=== PATIENT | female | born 2000 | race Caucasian/White ===

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

== ENCOUNTER 2018-02-23 22:15 | Emergency (ER) | payer OTHER ==
[~2018-02-23] VITALS: Ht 167.6 cm; Wt 108.9 kg
== END 2018-02-23 22:54 | disposition home or self-care (01) ==
LOC: ED 22:15
DX: S61.012A Laceration without foreign body of left thumb without damage to nail, initial encounter (principal); Z88.0 Allergy status to penicillin; Z88.7 Allergy status to serum and vaccine; Z88.6 Allergy status to analgesic agent; Z88.1 Allergy status to other antibiotic agents; W26.0XXA Contact with knife, initial encounter
CPT/HCPCS: 99282

== ENCOUNTER 2018-09-20 00:12 | Emergency (ER) | payer OTHER ==
[~2018-09-20] VITALS: Ht 167.6 cm; Wt 99.8 kg
[2018-09-20] MEDS ORDERED: SERTRALINE HCL100 MG PO (00:27)
[2018-09-20] MEDS ORDERED: MACROBID 100 M100 MG PO (02:02)
[2018-09-20] MEDS ORDERED: PYRIDIUM200 MG PO (02:02)
== END 2018-09-20 02:15 | disposition home or self-care (01) ==
LOC: ED 00:12
DX: N39.0 Urinary tract infection, site not specified (principal); Z88.0 Allergy status to penicillin; Z88.7 Allergy status to serum and vaccine; Z88.6 Allergy status to analgesic agent; Z88.1 Allergy status to other antibiotic agents
CPT/HCPCS: 81001; 84703; 87088; 99283

== ENCOUNTER 2019-04-29 14:30 | Emergency (ER) | payer OTHER ==
[~2019-04-29] VITALS: Ht 172.7 cm; Wt 111.1 kg
[~2019-04-29 14:30] MED LIST changes: +ATOMOXETINE HCL40 MG PO; +HYDROXYZINE HCL25 MG PO; +MACROBID 100 M100 MG PO; +PYRIDIUM200 MG PO; +SERTRALINE HCL100 MG PO; +ZOFRAN8 MG PO
== END 2019-04-29 19:57 | disposition home or self-care (01) ==
LOC: ED 14:30
DX: R10.2 Pelvic and perineal pain (principal); Z88.0 Allergy status to penicillin; Z88.1 Allergy status to other antibiotic agents; Z88.6 Allergy status to analgesic agent; Z88.7 Allergy status to serum and vaccine; Z79.899 Other long term (current) drug therapy
CPT/HCPCS: 74177; 76830; 76856; 81001; 84703; 85025; 87088; 99284-25; J1885; Q9967

== ENCOUNTER 2019-06-02 15:03 | Emergency (ER) | payer OTHER ==
--- OUTSIDE RECORDS SUMMARY | ~2019-06-02 | XMS | Encounter Summary ---
Demographics + + + | Address | [address] | | | [place] [address] | + + + | Home Phone | | + + + | Preferred Language | Unknown | + + + | Marital Status | Single | + + + | Latter-Day Affiliation | Unknown | + + + | Race | White | + + + | Ethnic Group | Not or | + + + Author + + + | Author | [facility] | + + + | Organization | [facility] | + + + | Address | Unknown | + + + | Phone | Unavailable | + + + Support + + + + + | Name | Relationship | Address | Phone | + + + + + | Debi Fisher | ECON | [address] | | | | | [place] | | | | | [address] | | + + + + + Care Team Providers + +------+ + | Care Heavy Duty Diesel Mechanic Name | Role | Phone | + +------+ + | Jonel Mcintosh DO | PCP | | + +------+ + Encounter Details +--------+ + + + + | Date | Type | Department | Care Team | Description | +--------+ + + + + | 07/28/ | Document-Sc | Dermatology at | [facility], | | | 2015 | anned | Jennifer Carlson | ,PhD | | | | | Clinic [address] | | | | | | [place] | | | | | | [address] | | | | | | [phone] | | | +--------+ + + + + Social History + +-------+ +--------+------+ | Tobacco Use | Types | Packs/Day | Years | Date | | | | | Used | | + +-------+ +--------+------+ | Never Smoker | | | | | + +-------+ +--------+------+ + + +---------+ + | Alcohol Use | Drinks/Week | oz/Week | Comments | + + +---------+ + | Not Asked | 0 Standard drinks | 0.0 | | | | or equivalent | | | + + +---------+ + + + + | Sex Assigned at | Date Recorded | | | | + + + | Not on file | | + + + + + + + | Job Start Date | Occupation | Industry | + + + + | Not on file | Not on file | Not on file | + + + + + + + + | Travel History | Travel Start | Travel End | + + + + + + | No recent travel history available. | + + documented as of this encounter Plan of Treatment Not on filedocumented as of this encounter Visit Diagnoses Not on filedocumented in this encounter"
--- OUTSIDE RECORDS SUMMARY | ~2019-06-02 | XMS | Encounter Summary ---
Demographics + + + | Address | [address] | | | [place] [address] | + + + | Home Phone | | + + + | Preferred Language | Unknown | + + + | Marital Status | Single | + + + | Restorationism Affiliation | Unknown | + + + | Race | White | + + + | Ethnic Group | Not or | + + + Author + + + | Author | [facility] | + + + | Organization | [facility] | + + + | Address | Unknown | + + + | Phone | Unavailable | + + + Support + + + + + | Name | Relationship | Address | Phone | + + + + + | Debi Fisher | ECON | [address] | | | | | [place] | | | | | [address] | | + + + + + Care Team Providers + +------+ + | Care Grant Manager Name | Role | Phone | + +------+ + | Jonel Mcintosh DO | PCP | | + +------+ + Encounter Details +--------+ + + + + | Date | Type | Department | Care Team | Description | +--------+ + + + + | 08/01/ | Telephone | Dermatology at | [facility], | | | 2015 | | Jennifer Carlson | ,PhD | | | | | Clinic [address] | | | | | | [place] | | | | | | [address] | | | | | | [phone] | | | +--------+ + + + [...]
--- OUTSIDE RECORDS SUMMARY | ~2019-06-02 | XMS | Encounter Summary ---
Demographics + + + | Address | [address] | | | [place] [address] | + + + | Home Phone | | + + + | Preferred Language | Unknown | + + + | Marital Status | Single | + + + | Denominational Affiliation | Unknown | + + + | Race | White | + + + | Ethnic Group | Not or | + + + Author + + + | Author | [facility] | + + + | Organization | [facility] | + + + | Address | Unknown | + + + | Phone | Unavailable | + + + Support + + + + + | Name | Relationship | Address | Phone | + + + + + | Deib Fisher | ECON | [address] | | | | | [place] | | | | | [address] | | + + + + + Care Team Providers + +------+ + | Care Relocation Associate Name | Role | Phone | + +------+ + | Jonel Mcintosh DO | PCP | | + +------+ + Encounter Details +--------+ + + + + | Date | Type | Department | Care Team | Description | +--------+ + + + + | 08/27/ | Document-Sc | Dermatology at | [facility], | | | 2015 | anned | Jennifer Carlson | ,PhD | | | | | Clinic [address] | | | | | | [place] | | | | | | [address] | | | | | | [phone] | | | +--------+ + + + [...]
--- OUTSIDE RECORDS SUMMARY | ~2019-06-02 | XMS | Encounter Summary ---
Demographics + + + | Address | [address] | | | [place] [address] | + + + | Home Phone | | + + + | Preferred Language | Unknown | + + + | Marital Status | Single | + + + | Zoroastrian Affiliation | Unknown | + + + | Race | White | + + + | Ethnic Group | Not or | + + + Author + + + | Author | [facility] | + + + | Organization | [facility] | + + + | Address | Unknown | + + + | Phone | Unavailable | + + + Support + + + + + | Name | Relationship | Address | Phone | + + + + + | Debi Fisher | ECON | [address] | | | | | [place] | | | | | [address] | | + + + + + Care Team Providers + +------+ + | Care Dairy Inspector Name | Role | Phone | + +------+ + | Jonel Mcintosh DO | PCP | | + +------+ + Encounter Details +--------+ + + + + | Date | Type | Department | Care Team | Description | +--------+ + + + + | 08/10/ | Document-Sc | Dermatology at | [facility], | | | 2015 | anned | Jennifer Carlson | ,PhD | | | | | Clinic [address] | | | | | | [place] | | | | | | [address] | | | | | | [phone] | | | +--------+ + + + [...]
--- OUTSIDE RECORDS SUMMARY | ~2019-06-02 | XMS | Encounter Summary ---
Demographics + + + | Address | [address] | | | [place] [address] | + + + | Home Phone | | + + + | Preferred Language | Unknown | + + + | Marital Status | Single | + + + | Temple Affiliation | Unknown | + + + | Race | White | + + + | Ethnic Group | Not or | + + + Author + + + | Author | [facility] | + + + | Organization | [facility] | + + + | Address | Unknown | + + + | Phone | Unavailable | + + + Support + + + + + | Name | Relationship | Address | Phone | + + + + + | Debi Fisher | ECON | [address] | | | | | [place] | | | | | [address] | | + + + + + Care Team Providers + +------+ + | Care Certified Alcohol Counselor Name | Role | Phone | + +------+ + | Jonel Mcintosh DO | PCP | | + +------+ + Encounter Details +--------+ + + + + | Date | Type | Department | Care Team | Description | +--------+ + + + + | 11/14/ | Document-Sc | Dermatology at | [facility], | | | 2015 | [place] | Jennifer Carlson | ,PhD | | | | | Clinic [address] | | | | | | [place] | | | | | | [address] | | | | | | [phone] | | | +--------+ + + + + Social History + +-------+ +--------+------+ | Tobacco Use | Types | Packs/Day | Years | Date | | | | | Used | | + +-------+ +--------+------+ | Never Assessed | | | | | + +-------+ +--------+------+ + + + | Sex Assigned at [...]
--- OUTSIDE RECORDS SUMMARY | ~2019-06-02 | XMS | Encounter Summary ---
Demographics + + + | Address | [address] | | | [place] [address] | + + + | Home Phone | | + + + | Preferred Language | Unknown | + + + | Marital Status | Single | + + + | Christian Affiliation | Unknown | + + + | Race | White | + + + | Ethnic Group | Not or | + + + Author + + + | Author | [facility] | + + + | Organization | [facility] | + + + | Address | Unknown | + + + | Phone | Unavailable | + + + Support + + + + + | Name | Relationship | Address | Phone | + + + + + | Debi Fisher | ECON | [address] | | | | | [place] | | | | | [address] | | + + + + + Care Team Providers + +------+ + | Care Chicken Picker Name | Role | Phone | + +------+ + | Jonel Mcintosh DO | PCP | | + +------+ + Reason for Visit + + + | Reason | Comments | + + + | Examination Of Skin | Adriane is here today for concerns with a rash on groin and inner | | | thighs. SWETHA Broussard | + + + Consultation (Routine) +--------+--------+ + + + + | Status | Reason | Specialty | Diagnoses / | Referred By | Referred To | | | | | Procedures | Contact | Contact | +--------+--------+ + + + + | Closed | | Dermatology | Diagnoses | Arnaldo, | Skip, | | | | | | Jonel Hardwick DO | [facility], | | | | | Dermatophyto | [address] | ,Ph[address] | | | | [address], | [address] | [address] | | | | | unspecified | [place], | [place], [place] | | | | | Dermatitis, | [place] [address] | [address] | | | | | unspecified | Phone: | | | | | | | [phone] | | | | | | | Fax: | | | | | | | [phone] | | +--------+--------+ + + + + Encounter Details +--------+---------+ + + + | Date | Type | Department | Care Team | Description | +--------+---------+ + + + | 07/10/ | Office | Dermatology [facility] | [facility], | Vitiligo (Primary | | 2015 | Visit | [address] | ,PhD | Dx); Intertrigo; | | | | [place], [place] | | Acquired acanthosis | | | | [address] | | nigricans | | | | [phone] | | | +--------+---------+ + + + Social History + +-------+ [...] + + documented as of this encounter Last Filed Vital Signs + + + + + | Vital Sign | Reading | Time Taken | Comments | + + + + + | Blood Pressure | - | - | | + + + + + | Pulse | 63 | 07/10/2016 10:59 AM | | | | | PST | | + + + + + | Temperature | - | - | | + + + + + | Respiratory Rate | - | - | | + + + + + | Oxygen Saturation | 99% | 07/10/2016 10:59 AM | | | | | PST | | + + + + + | Inhaled Oxygen | - | - | | | Concentration | | | | + + + + + | Weight | 101.8 kg (224 lb 6.4 | 07/10/2016 10:59 AM | | | | oz) | PST | | + + + + + | Height | 172.7 cm (5' 8") | 07/10/2016 10:59 AM | | | | | PST | | + + + + + | Body Mass Index | 34.12 | 07/10/2016 10:59 AM | | | | | PST | | + + + + + documented in this encounter Patient Instructions Patient Instructions Kya Valdivia MD,PhD - 07/10/2016 11:09 AM [facility] Vitiligo: Care Instructions Your Care Instructions Vitiligo (say "to-rub-OP-go") is a skin problem that happens when cells that make pigment a re destroyed. Pigment gives skin its color. You may have white patches on areas of your body. The hair in these places may turn white. Sometimes, the white patches spread. Doctors don't know what causes this problem. It may run in families. This means that a chil d may be more likely to get it if a parent has it. If you decide to treat this problem, treatment can take a long time to work, and it may not work at all. Follow-up care is a gabriel part of your treatment and safety. Be sure to make and go to all ap pointments, and call your doctor if you are having problems. It's also a good idea to know y our test results and keep a list of the medicines you take. How can you care for yourself at home? Put creams or ointments on your skin as directed by your doctor. Be careful if you put t hem around your eyes, nose, or mouth. Take your medicines exactly as prescribed. Call your doctor if you have any problems wit h your medicine. If you have light therapy, your skin will be exposed to a special light. Follow your doc tor's directions on caring for your skin. Protect your skin from the sun. It is most important to protect the white patches. Use s unscreen, hats with wide brims, sunglasses, and clothing that covers your arms and legs. Talk to your doctor about sunless tanning products. You can buy these without a prescrip tion. When should you call for help? Watch closely for changes in your health, and be sure to contact your doctor if: White patches on your skin spread faster than usual. You do not get better as expected. Where can you learn more? To learn more about "Vitiligo: Care Instructions", log into your [employer] account at [email or web address]. You can enter B241 in the [employer] Library" search box. Not on [employer]? Review the [employer] section of your After Visit Summary for directions on ho w to sign up. [id number] [employer]. Care instructions adapted under license by [facility]. This care instruction is for use with your licensed healthcar e professional. If you have questions about a medical condition or this instruction, always ask your healthcare professional. [employer] disclaims any warranty or liabili ty for your use of this information. Content Version: 11.0.877889; Current as of: October 05, 2015 documented in this encounter Progress Notes Kya Valdivia MD,PhD - 07/10/2016 10:56 AM PSTFormatting of this note might be differen t from the original. DERMATOLOGY NEW PATIENT VISIT CHIEF COMPLAINT: Examination Of Skin PCP: Jonel Mcintosh DO HISTORY OF PRESENT ILLNESS: Garland Fisher is a 16 y.o. female who presents for evaluation of Examination Of Skin She i s a new patient to dermatology. She is here for evaluation of a rash in her inguinal area. T his has been going on for approximately three years. She finds that it is itchy, inflamed an d sometimes tender. It tends to worsen around the time of her menstrual cycle. She has had n umerous treatments including oral griseofulvin, oral antibiotics and topical antifungals. Sh benedict feels like the rash does sometimes improve, but has never cleared. She is most bothered by the lightning/whitening of the skin in the affected area. She does have a history of hypothyroidism as a child, was on thyroid replacement but is now not. Her recent thyroid function tests have been normal. She is also focusing on exercise a nd weight loss, was told that she was potentially prediabetic. She grew up in [place], [place]. They have no history of tanning bed use, no history of serious s unburns. Outdoor hobbies and interests include: swim, soccer, tennis. Occupation: [employer]. Phelps skin type II. She does regularly use sunscreens and protective clothing, and d oes examine her skin regularly. The patient's dermatology intake form was reviewed, signed, and dated. Her relevant PMH, F H, and SH includes: PAST MEDICAL HISTORY: No past medical history on file. PAST SURGICAL HISTORY: No past surgical history on file. FAMILY HISTORY: Family History: no autoimmune disease SOCIAL HISTORY: Patient MEDICATIONS: Current Medication List Not on File ALLERGIES: -- Penicillins -- Nausea and Vomiting REVIEW OF SYSTEMS: Please see HPI and PMH. In addition, she denies fever, chills, sweats, weight loss or loss of appetite, and has no further skin complaints. PHYSICAL EXAMINATION: Pulse 63 | Ht 1.727 m (5' 8") | Wt 101.787 kg (224 lb 6.4 oz) | SpO2 99% | BMI 34.13 kg/(m^ 2) Well-developed, well-nourished female in no acute distress. Awake, alert and oriented. Pl easant and cooperative mood. A skin examination was performed including the groin, axilla, thighs Findings were within normal limits except for the following: --Groin: depigmented patches along the inguinal creases and medial thighs with follicular r e-pigmentation bilaterally, erythema and maceration in the same distribution on the L side o nly --axillary vaults: hyperpigmentation and acanthosis ASSESSMENT AND PLAN: Vitiligo (primary encounter diagnosis) Comment: Groin, with evidence of re-pigmentation - may indicate a good prognosis, appears t o be improving without therapy. The mainstay of treatment is topical steroids, which I am he sitant to use in this occluded area as it increases the risk of skin atrophy. Also, she has concominant intertrigo which can be worsened with steriods. Plan: topical PROTOPIC ointment, and non-steroid anti-inflammatory, would be the ideal ther apy as it does not have risk of skin atrophy and has a lower risk for worsening the intertri go. Insurance coverage will likely be an issue. Will start PA if needed and discussed discou nted medications through [facility] Intertrigo Comment: Groin Plan: Fluconazole 150 mg weekly x 12 weeks Acanthosis nigricans Comment: axillae Plan: we discussed continued efforts at weight loss will help improve/resolve the appearanc e of these areas, discussed association with insulin resistance. RETURN VISIT: Return in about 3 months (around 10/10/2016). Kya Valdivia M.D. Ph.D. Weight Recorder Department of Dermatology [facility] ([facility] Dermatology documented in th is encounter Plan of Treatment Not on filedocumented as of this encounter Visit Diagnoses + + | Diagnosis | + + | Vitiligo - Primary | + + | Intertrigo Other specified erythematous condition | + + | Acquired acanthosis nigricans | + + documented in this encounter
--- OUTSIDE RECORDS SUMMARY | ~2019-06-02 | XMS | Encounter Summary ---
Demographics + + + | Address | [address] | | | [place] [address] | + + + | Home Phone | | + + + | Preferred Language | Unknown | + + + | Marital Status | Single | + + + | Anglican Affiliation | Unknown | + + + | Race | White | + + + | Ethnic Group | Not or | + + + Author + + + | Author | [facility] | + + + | Organization | [facility] | + + + | Address | Unknown | + + + | Phone | Unavailable | + + + Support + + + + + | Name | Relationship | Address | Phone | + + + + + | Debi Fisher | ECON | [address] | | | | | [place] | | | | | [address] | | + + + + + Care Team Providers + +------+ + | Care Revenue Manager Name | Role | Phone | [...] [place] | | | | | | [address] | | | | | | [phone] | | | +--------+ + + + [...]
--- OUTSIDE RECORDS SUMMARY | ~2019-06-02 | XMS | Encounter Summary ---
Demographics + + + | Address | [address] | | | [place] [address] | + + + | Home Phone | | + + + | Preferred Language | Unknown | + + + | Marital Status | Single | + + + | Amish Affiliation | Unknown | + + + | Race | White | + + + | Ethnic Group | Not or | + + + Author + + + | Author | [facility] | + + + | Organization | [facility] | + + + | Address | Unknown | + + + | Phone | Unavailable | + + + Support + + + + + | Name | Relationship | Address | Phone | + + + + + | Debi Fisher | ECON | [address] | | | | | [place] | | | | | [address] | | + + + + + Care Team Providers + +------+ + | Care Professor Of Industrial Technology Name | Role | Phone | + +------+ + | Jonel Mcintosh DO | PCP | | + +------+ + Encounter Details +--------+ + + + + | Date | Type | Department | Care Team | Description | +--------+ + + + + | 08/28/ | Telephone | Dermatology at | [facility], | | | 2015 | | Jennifer Carlson | ,PhD | | | | | Clinic [address] | | | | | | [place] | | | | | | [address] | | | | | | [phone] | | | +--------+ + + + [...]
--- OUTSIDE RECORDS SUMMARY | ~2019-06-02 | XMS | Clinical Summary ---
Demographics + + + | Address | [address] | | | [place] [address] | + + + | Home Phone | | + + + | Preferred Language | Unknown | + + + | Marital Status | Single | + + + | Quaker Affiliation | Unknown | + + + | Race | Unknown | + + + | Ethnic Group | Unknown | + + + Author + + + | Author | [facility] | | | and [place] | + + + | Organization | [facility] | | | and [place] | + + + | Address | Unknown | + + + | Phone | Unavailable | + + + Support + + +---------+ + | Name | Relationship | Address | Phone | + + +---------+ + | Yen Fisher | ECON | Unknown | | + + +---------+ + | Sania Santo | ECON | Unknown | | + + +---------+ + Care Team Providers + +------+ + | Care Mail Processing Associate Name | Role | Phone | + +------+ + | Jonel Mcintosh DO | PCP | Unavailable | + +------+ + Allergies + + + + + + | Active Allergy | Reactions | Severity | Noted | Comments | | | | | Date | | + + + + + + | Adhesive & Tape | Itching | | 07/20/20 | | | | | | 18 | | + + + + + + | Albumen, Egg | Nausea Only | Low | 07/06/20 | | | | | | 18 | | + + + + + + | Ibuprofen | Other (See Comments) | | 06/07/20 | Reaction: Unknown | | | | | 18 | | + + + + + + | Milk | Nausea Only, Other | Low | 07/06/20 | Upset stomach | | | (See Comments) | | 18 | | + + + + + + | Penicillins | | | 07/18/20 | | | | | | 10 | | + + + + + + Medications + + + +---------+------+------+-------+ | Medication | Sig | Dispensed | Refills | Star | End | Statu | | | | | | t | Date | s | | | | | | Date | | | + + + +---------+------+------+-------+ | | Take 1 tablet by | | 0 | | | Activ | | levonorgestrel-ethin | mouth Daily. | | | | | e | | yl estradiol | | | | | | | | (CAMRESE) 0.15-0.03 | | | | | | | | &0.01 MG TABS | | | | | | | + + + +---------+------+------+-------+ | tacrolimus | Apply 1 Application | | 0 | | | Activ | | (PROTOPIC) 0.1 % | topically 2 times | | | | | e | | ointment | daily. | | | | | | + + + +---------+------+------+-------+ | sertraline | take 1/2 tablet by | | 0 | 10/3 | | Activ | | (ZOLOFT) 50 mg | mouth once daily for | | | 0/20 | | e | | tablet | 6 days then 1 | | | 18 | | | | | tablet by m... | | | | | | | | (REFER TO | | | | | | | | PRESCRIPTION NOTES). | | | | | | + + + +---------+------+------+-------+ | eluxadoline | Take 1 tablet by | 24 | 0 | 11/0 | | Activ | | (VIBERZI) 100 mg | mouth 2 times daily | tablet | | 6/20 | | e | | tabletIndications: | (with breakfast & | | | 18 | | | | Nocturnal diarrhea | dinner). | | | | | | + + + +---------+------+------+-------+ Active Problems + + + | Problem | Noted Date | + + + | Chronic abdominal pain | 07/06/2018 | + + + | Irritable bowel syndrome with both constipation and diarrhea | 07/06/2018 | + + + | Nocturnal diarrhea | 07/06/2018 | + + + | Acne | 07/06/2018 | + + + | Obesity, Class III, BMI 40-49.9 (morbid obesity) | 07/06/2018 | + + + | VOMITING | 07/18/2010 | + + + | ABDOMINAL PAIN, GENERALIZED | 07/18/2010 | + + + Immunizations + + + + | Name | Dates Previously Given | Next Due | + + + + | HEP A, 2 DOSE | 03/12/2017 | | | (PED/ADOL) | | | + + + + | HEP B, 2 DOSE (ADOL) | 03/12/2017 | | + + + + | MENINGOCOCCAL | 03/15/2017, 03/12/2017 | | | POLYSACCHARIDE, 2 | | | | DOSE | | | | (PED/ADOL/ADULT) | | | + + + + Family History + + +------+ + | Medical History | Relation | Name | Comments | + + +------+ + | Allergy (severe) | Father | | | + + +------+ + | Irritable bowel | Father | | | | syndrome | | | | + + +------+ + | Arthritis | Maternal | | | | | Grandmoth | | | | | er | | | + + +------+ + | Colon cancer | Maternal | | | | | Grandmoth | | | | | er | | | + + +------+ + | Colon polyps | Maternal | | | | | Grandmoth | | | | | er | | | + + +------+ + | Migraines | Maternal | | | | | Grandmoth | | | | | er | | | + + +------+ + | Other (see comment) | Paternal | | Malignant neoplastic disease | | | Grandfath | | | | | er | | | + + +------+ + | Arthritis | Paternal | | | | | Grandmoth | | | | | er | | | + + +------+ + | Obesity | Paternal | | | | | Grandmoth | | | | | er | | | + + +------+ + | Other (see comment) | Paternal | | Malignant neoplastic disease | | | Grandmoth | | | | | er | | | + + +------+ + | Allergy (severe) | Sister | | | + + +------+ + + +------+--------+ + | Relation | Name | Status | Comments | + +------+--------+ + | Father | | | | + +------+--------+ + | Maternal Grandmother | | | | + +------+--------+ + | Paternal Grandfather | | | | + +------+--------+ + | Paternal Grandmother | | | | + +------+--------+ + | Sister | | | | + +------+--------+ + Social History + +-------+ +--------+------+ | Tobacco Use | Types | Packs/Day | Years | Date | | | | | Used | | + +-------+ +--------+------+ | Never Smoker | | | | | + +-------+ +--------+------+ + +---+---+---+ | Smokeless Tobacco: | | | | | Never Used | | | | + +---+---+---+ + + +---------+ + | Alcohol Use | Drinks/We | oz/Week | Comments | | | ek | | | + + +---------+ + | No | | | | + + +---------+ + [...] recent travel history available. | + + Last Filed Vital Signs + + + + | Vital Sign | Reading | Time Taken | + + + + | Blood Pressure | 123/74 | 07/20/2018 1012 PST | + + + + | Pulse | 64 | 07/20/2018 1012 PST | + + + + | Temperature | 36.7 C (98.1 F) | 07/20/2018 0950 PST | + + + + | Respiratory Rate | 16 | 07/20/20181011 PST | + + + + | Oxygen Saturation | 100% | 07/20/20181011 PST | + + + + | Inhaled Oxygen | - | - | | Concentration | | | + + + + | Weight | 122.4 kg (269 lb | 07/20/2018807 PST | | | 13.5 oz) | | + + + + | Height | 167.6 cm (5' 6") | 07/20/2018807 PST | + + + + | Body Mass Index | 43.55 | 07/20/2018807 PST | + + + + Plan of Treatment + + + + + | Health Maintenance | Due Date | Last Done | Comments | + + + + + | Well Child Check | | | | | | 1 | | | + + + + + | Vaccine: HPV (1 - | | | | | Female 3-dose | 3 | | | | series) | | | | + + + + + | Vaccine: | | | | | Dtap/Tdap/Td (1 - | 7 | | | | Tdap) | | | | + + + + + | Vaccine: Influenza | | | | | (#1) | 9 | | | + + + + + | Cervical Cancer | | | | | Screening (Pap) | 9 | | | + + + + + Results Not on filefrom Last 3 Months Insurance + +--------+ +--------+ +---------+--------+ | Payer | Benefi | Subscriber | Effect | Phone | Address | Type | | | t Plan | ID | jose antonio | | | | | | / | | Dates | | | | | | Group | | | | | | + +--------+ +--------+ +---------+--------+ | [employer] | MODA | [id number] | | [phone] | | Medica | | MEDICAID HMO | HEALTH | | [phone] | 1 | | id | | | MDCD | | esent | | | | | | HMO [place] | | | | | | + +--------+ +--------+ +---------+--------+ + +--------+ +--------+ + + | Guarantor Name | Accoun | Relation to | Date | Phone | Billing Address | | | t Type | Patient | of | | | | | | | | | | + +--------+ +--------+ + + | YEN FISHER | Person | Mother | [birth year] | [address] | | | monica/Anthony | | 1972 | [phone] | radha ANATOLY | | | [place] | | | 5 (Home) | [place] [address] | + +--------+ +--------+ + + Advance Directives Patient has advance care planning documents on file. For more information, please contact:[facility] [place] [address]
--- OUTSIDE RECORDS SUMMARY | ~2019-06-02 | XMS | Encounter Summary ---
Demographics + + + | Address | [address] | | | [place] [address] | + + + | Home Phone | | + + + | Preferred Language | Unknown | + + + | Marital Status | Single | + + + | Jainism Affiliation | Unknown | + + + | Race | White | + + + | Ethnic Group | Not or | + + + Author + + + | Author | [facility] | + + + | Organization | [facility] | + + + | Address | Unknown | + + + | Phone | Unavailable | + + + Support + + + + + | Name | Relationship | Address | Phone | + + + + + | Debi Fisher | ECON | [address] | | | | | [place] | | | | | [address] | | + + + + + Care Team Providers + +------+ + | Care Clergy Member Name | Role | Phone | + [...] [place] | | | | | | [address] | | | | | | [phone] | | | +--------+ + + + [...]
--- OUTSIDE RECORDS SUMMARY | ~2019-06-02 | XMS | Encounter Summary ---
Demographics + + + | Address | [address] | | | [place] [address] | + + + | Home Phone | | + + + | Preferred Language | Unknown | + + + | Marital Status | Single | + + + | Rastafari Affiliation | Unknown | + + + | Race | White | + + + | Ethnic Group | Not or | + + + Author + + + | Author | [facility] | + + + | Organization | [facility] | + + + | Address | Unknown | + + + | Phone | Unavailable | + + + Support + + + + + | Name | Relationship | Address | Phone | + + + + + | Debi Fisher | ECON | [address] | | | | | [place] | | | | | [address] | | + + + + + Care Team Providers + +------+ + | Care Market Specialist Name | Role | Phone | + +------+ + | Jonel Mcintosh DO | PCP | | + +------+ + Encounter Details +--------+ + + + + | Date | Type | Department | Care Team | Description | +--------+ + + + + | 07/14/ | Document-Sc | Dermatology at | Kya Valdivia, | | | 2015 | anned | Jennifer Carlson | ,PhD | | | | | Clinic [address] | | | | | | [place] | | | | | | [address] | | | | | | [phone] | | | +--------+ + + + [...]
--- OUTSIDE RECORDS SUMMARY | ~2019-06-02 | XMS | Encounter Summary ---
Demographics + + + | Address | [address] | | | [place] [address] | + + + | Home Phone [...] [place] | | | | | [address] | | + + + + + Care Team Providers + +------+ + | Care Marine Underwriter Name | Role | Phone | + [...] [place] | | | | | | [address] | | | | | | [phone] | | | +--------+ + + + [...]
--- OUTSIDE RECORDS SUMMARY | ~2019-06-02 | XMS | Encounter Summary ---
Demographics + + + | Address | [address] | | | [place] [address] | + + + | Home Phone | | + + + | Preferred Language | Unknown | + + + | Marital Status | Single | + + + | Buddhism Affiliation | Unknown | + + + | Race | White | + + + | Ethnic Group | Not or | + + + Author + + + | Author | [facility] | + + + | Organization | [facility] | + + + | Address | Unknown | + + + | Phone | Unavailable | + + + Support + + + + + | Name | Relationship | Address | Phone | + + + + + | Debi Fisher | ECON | [address] | | | | | [place] | | | | | [address] | | + + + + + Care Team Providers + +------+ + | Care Line Person Name | Role | Phone | + +------+ + | Jonel Mcintosh DO | PCP | | + +------+ + Reason for Visit + + + | Reason | Comments | + + + | Skin rash | | + + + Consultation (Routine) +--------+--------+ + + + + | Status | Reason | Specialty | Diagnoses / | Referred By | Referred To | | | | | Procedures | Contact | Contact | +--------+--------+ + + + + | Closed | | Dermatology | Diagnoses | Jesus Mcintosh | | | | | Erythema | Jonel Hardwick DO | Iris Hardwick MD | | | | | intertrigo | [address] | [address] | | | | | | [address] | [address] | | | | | | [place], | [place], [place] | | | | | | [place] [address] | [address] | | | | | | Phone: | | | | | | | [phone] | | | | | | | Fax: | | | | | | | [phone] | | +--------+--------+ + + + + Encounter Details +--------+---------+ + + + | Date | Type | Department | Care Team | Description | +--------+---------+ + + + | 10/06/ | Office | Dermatology at | Kya Valdivia, | Vitiligo (Primary | | 2017 | Visit | [facility] | ,PhD | Dx) | | | | Clinic [address] | | | | | | [place] | | | | | | [address] | | | | | | [phone] | | | +--------+---------+ + + + [...] + + + | Blood Pressure | 118/60 | 10/06/2016 12:51 PM | | | | | PST | | + + + + + | Pulse | 63 | 10/06/2016 12:51 PM | | | | | PST | | + + + + + | Temperature | - | - | | + + + + + | Respiratory Rate | - | - | | + + + + + | Oxygen Saturation | - | - | | + + + + + | Inhaled Oxygen | - | - | | | Concentration | | | | + + + + + | Weight | 96.2 kg (212 lb) | 10/06/2016 12:51 PM | | | | | PST | | + + + + + | Height | 168.9 cm (5' 6.5") | 10/06/2016 12:51 PM | | | | | PST | | + + + + + | Body Mass Index | 33.71 | 10/06/2016 12:51 PM | | | | | PST | | + + + + + documented in this encounter Patient Instructions Patient Instructions Leyda Hernandez MA - 10/06/2016 1:00 PM PSTSUNSCREEN APPLICATION AND UV PROTECTION ? Exposure to ultraviolet radiation is the leading cause of premature aging, and skin cance rs including melanoma. ? The [place] Academy [employer] Dermatology (AAD) recommends you wear a wide-brimmed hat, sun gla sses and sun protective clothing. If you must be in the sun, it is recommended to use a Bro ad spectrum sunscreen (blocking both UVA and UVB) with a sun protection factor (SPF) of 30+ (even on cloudy days) and reapply every two hours, or after swimming or heavy perspiration. ? Sunscreens should be applied generously and evenly. One fluid ounce (or the equivalent o f a full shot glass) is the approximate amount of sunscreen required for each person each ti me sunscreen is applied. ? Sunscreens have an expiration date and once that date is reached, they may lose effective ness and should be discarded. ? Sunscreen is also important for blocking reflected UVR (Ultraviolet Radiation). Sand, con crete, snow, water, and other surfaces reflect UVR which has the same effect to your skin as direct sunlight. THE "ABCDE" RULE AND MELANOMA DETECTION Asymmetry - compare one half of the growth to the other half to determine if the halves are equal in size and appearance. Border - If the mole's border is irregular, notched, scalloped, or indistinct, it should be checked by a doctor. Color - Variation of color (e.g., more than one color or shade) within a mole is a suspicio us finding. Diameter - Any mole that has a diameter larger than a pencil's eraser should be checked by a doctor. Evolving - If a mole is changing in size, shape, color, elevation, surface texture or becom es itchy or painful, it should be checked by a doctor. Additional sunscreen and melanoma information is available at the following websites: http://www.[facility].edu/xd/health/services/dermatology/for-patients/health_info.cfm - [facility] Derm atology http://www.aad.org/public/sun/smart.html - AAD Website documented in this encounter Progress Notes Kya Valdivia MD,PhD - 10/06/2016 1:00 PM [facility] DERMAT[facility]Y FOLLOW-UP VISIT (Last Appointment in [facility] was on 08/28/16 with Kya Valdivia MD,PhD.) --Vitiligo, Rx: protopic --Intertrigo: Groin --Acanthosis nigricans: axillae SUBJECTIVE: Garland Fisher is a 16 y.o. female here for follow-up of Vitiligo. Pt states that she recen tly seen her PCP and he prescribed fluconazole and she states that this has helped tremendou sly. She is currently on a course of this and has 3 days left. She states that the color is returning but it's slow. No longer burning. She applying Protopic once in the morning and on ce in the evening. ROS: Other than those stated above, the patient denies any fevers, chills, night sweats, w eight loss, loss of appetite or other skin complaints. PAST MEDICAL HISTORY: No past medical history on file. PHYSICAL EXAMINATION: BP 118/60 | Pulse 63 | Ht 1.689 m (5' 6.5") | Wt 96.2 kg (212 lb) | BMI 33.71 kg/(m^2) Well-developed, well-nourished person in no acute distress. Awake, alert and oriented. Pl easant and cooperative mood. A skin examination was performed including the scalp, face, eyelids, ears, lips, neck, ches t, back, abdomen, groin, bilateral arms, bilateral hands, and nails. Findings were within n ormal limits except for the following: --depigmented patches symmetrically on the inner thighs, significant interval improvement i n pigmentation, proximally the pigment has become confluent, and distally/laterally the pigm entation remains perifollicular with a slight area yet to re-pigment at the distal border ASSESSMENT AND PLAN: Vitiligo (primary encounter diagnosis) Comment: Improvement! Plan: Continue to use Protopic twice a day. Please continue protopic twice a day until the pigmentation has covered the area, then we will decrease to daily for 3-4 weeks, and eventua lly to 2-3 times a week application for maintenance. Comment: Thanks to PCP Dr. Mcintosh for help with managing the occasional bouts of candidal i ntertrigo. RETURN VISIT: Return in about 4 months (around 02/03/2017). Kya Valdivia M.D. Ph.D. Account Manager Education Department of Dermatology [facility] ([facility]) Dermatology documented in th is encounter Plan of Treatment Not on filedocumented as of this encounter Visit Diagnoses + + | Diagnosis | + + | Vitiligo - Primary | + + documented in this encounter
--- OUTSIDE RECORDS SUMMARY | ~2019-06-02 | XMS | Clinical Summary ---
Demographics + + + | Address | [address] | | | [place] [address] | + + + | Home Phone | | + + + | Preferred Language | Unknown | + + + | Marital Status | Single | + + + | Rastafari Affiliation | Unknown | + + + | Race | Unknown | + + + | Ethnic Group | Unknown | + + + Author + + + | Author | [facility] | | | and [place] | + + + | Organization | [facility] | | | and [place] [...] Team Providers + +------+ + | Care Batch Unit Treater Name | Role | Phone | + [...] | [employer] | [employer] | [id number] | | [phone] | | Medica | [...] | | [address] (Home) | [place] [address] | + +--------+ +--------+ + + Advance Directives Patient has advance care planning documents on file. For more information, please contact:[facility] [place] [address]
--- OUTSIDE RECORDS SUMMARY | ~2019-06-02 | XMS | Encounter Summary ---
Demographics + + + | Address | [address] | | | [place] [address] | + + + | Home Phone [...] Author + + + | Author | [facility] | + + + | Organization | [facility] | + + + | Address | Unknown | + + + | Phone | Unavailable | + + + Support + + + + + | Name | Relationship | Address | Phone | + + + + + | Debi Fisher | ECON | [address] | | | | | [place] | | | | | [address] | | + + + + + Care Team Providers + +------+ + | Care Slope Tender Name | Role | Phone | + [...] [place] | | | | | | [address] | | | | | | [phone] | | | +--------+ + + + [...]
--- OUTSIDE RECORDS SUMMARY | ~2019-06-02 | XMS | Encounter Summary ---
Demographics + + + | Address | [address] | | | [place] [address] | + + + | Home Phone [...] + + + | Author | [facility] | + + + | Organization | [facility] | + + + | Address | Unknown | + + + | Phone | Unavailable | + + + Support + + + + + | Name | Relationship | Address | Phone | + + + + + | Debi Fisher | ECON | [address] | | | | | [place] | | | | | [address] | | + + + + + Care Team Providers + +------+ + | Care Building Consultant Name | Role | Phone | + [...] [place] | | | | | | [address] | | | | | | [phone] | | | +--------+ + + + [...]
--- OUTSIDE RECORDS SUMMARY | ~2019-06-02 | XMS | Clinical Summary ---
Demographics + + + | Address | [address] | | | [place] [address] | + + + | Home Phone | | + + + | Preferred Language | Unknown | + + + | Marital Status | Single | + + + | Faith Affiliation | Unknown | + + + | Race | White | + + + | Ethnic Group | Not or | + + + Author + + + | Author | [facility] | + + + | Organization | [facility] | + + + | Address | Unknown | + + + | Phone | Unavailable | + + + Support + + + + + | Name | Relationship | Address | Phone | + + + + + | Debi Fisher | ECON | [address] | | | | | [place] | | | | | [address] | | + + + + + Care Team Providers + +------+ + | Care Selling Specialist Name | Role | Phone | + +------+ + | Jonel Mcintosh DO | PCP | | + +------+ + Source Comments ELVIE is fully live on both [facility] and [facility] InPatient.[facility] Allergies + + + + + + | Active Allergy | Reactions | Severity | Noted | Comments | | | | | Date | | + + + + + + | Penicillins | Nausea and Vomiting, | | 07/10/20 | | | | Dyspnea | | 16 | | + + + + + + Medications + + + +---------+------+------+-------+ | Medication | Sig | Dispensed | Refills | Star | End | Statu | | | | | | t | Date | s | | | | | | Date | | | + + + +---------+------+------+-------+ | fluconazole 150 mg | Take once weekly | 12 | 0 | 11/1 | | Activ | | oral tablet | | tablet | | 0/20 | | e | | | | | | 16 | | | + + + +---------+------+------+-------+ | tacrolimus | Apply to affected | 30 g | 2 | 11/1 | | Activ | | (PROTOPIC) 0.1 % | area two times | | | 0/20 | | e | | topical ointment | daily. Apply minimum | | | 16 | | | | | amount of ointment | | | | | | | | to affected area. | | | | | | | | Rub in gently and | | | | | | | | completely. | | | | | | + + + +---------+------+------+-------+ Active Problems Not on file Social History + +-------+ +--------+------+ | Tobacco [...] | | + + + + + Plan of Treatment + + + + + | Health Maintenance | Due Date | Last Done | Comments | + + + + + | Influenza (Flu) | | | | | vaccination (#1) | 9 | | | + + + + + | Pneumococcal | Aged Out | | No longer eligible | | vaccination | | | based on patient's | | | | | age to complete this | | | | | topic | + + + + + Results Not on filefrom Last 3 Months Insurance + +--------+ +--------+-------+---------+--------+ | Payer | Benefi | Subscriber | Effect | Phone | Address | Type | | | t Plan | ID | jose antonio | | | | | | / | | Dates | | | | | | Group | | | | | | + +--------+ +--------+-------+---------+--------+ | STATUS CONTROLLER MEDICAID | STATUS CONTROLLER | xxxxxxxx | Effect | | | Medica | | | EASTER | | jose antonio | | | id | | | [place] | | for | | | | | | | | all | | | | | | | | dates | | | | + +--------+ +--------+-------+---------+--------+ + +--------+ +--------+ + + | Guarantor Name | Accoun | Relation to | Date | Phone | Billing Address | | | t Type | Patient | of | | | | | | | | | | + +--------+ +--------+ + + | Garland Fisher | Person | Self | [birth year] | [address] | | | al/[place] | | 2000 | [phone] | [place] [address] | | | [place] | | | 4 (Home) | | + +--------+ +--------+ + +
--- OUTSIDE RECORDS SUMMARY | ~2019-06-02 | XMS | Clinical Summary ---
Demographics + + + | Address | [address] | | | [place] [address] | + + + | Home Phone | | + + + | Preferred Language | Unknown | + + + | Marital Status | Single | + + + | Gnosticism Affiliation | Unknown | + + + | Race | White | + + + | Ethnic Group | Not or | + + + Author + + + | Author | [facility] | + + + | Organization | [facility] | + + + | Address | Unknown | + + + | Phone | Unavailable | + + + Support + + + + + | Name | Relationship | Address | Phone | + + + + + | Debi Fisher | ECON | [address] | | | | | [place] | | | | | [address] | | + + + + + Care Team Providers + +------+ + | Care Dictating Machine Typist Name | Role | Phone | + +------+ + | Jonel Mcintosh DO | PCP | | + +------+ + Source Comments ELVIE is fully live on both [facility] and [facility] Allergies + + + + + [...] | | | + +--------+ +--------+-------+---------+--------+ | CHEST PAIN COORDINATOR MEDICAID | CHEST PAIN COORDINATOR | xxxxxxxx | Effect | | | [...] | 2000 | [phone] | [place] [address] | | | [place] | | | 4 (Home) | | + +--------+ +--------+ + +
--- OUTSIDE RECORDS SUMMARY | ~2019-06-02 | XMS | Encounter Summary ---
Demographics + + + | Address | [address] | | | [place] [address] | + + + | Home Phone | | + + + | Preferred Language | Unknown | + + + | Marital Status | Single | + + + | Latter Day Affiliation | Unknown | + + + | Race | White | + + + | Ethnic Group | Not or | + + + Author + + + | Author | [facility] | + + + | Organization | [facility] | + + + | Address | Unknown | + + + | Phone | Unavailable | + + + Support + + + + + | Name | Relationship | Address | Phone | + + + + + | Debi Fisher | ECON | [address] | | | | | [place] | | | | | [address] | | + + + + + Care Team Providers + +------+ + | Care Apprentice Lineman Third Step Name | Role | Phone | + [...] [place] | | | | | | [address] | | | | | | [phone] | | | +--------+ + + + [...]
--- OUTSIDE RECORDS SUMMARY | ~2019-06-02 | XMS | Encounter Summary ---
Demographics + + + | Address | [address] | | | [place] [address] | + + + | Home Phone | | + + + | Preferred Language | Unknown | + + + | Marital Status | Single | + + + | Sabianist Affiliation | Unknown | + + + [...] [place] | | | | | [address] | | + + + + + Care Team Providers + +------+ + | Care Technical Support Assistant Name | Role | Phone | + [...] [place] | | | | | | [address] | | | | | | [phone] | | | +--------+ + + + [...]
--- OUTSIDE RECORDS SUMMARY | ~2019-06-02 | XMS | Encounter Summary ---
Demographics + + + | Address | [address] | | | [place] [address] | + + + | Home Phone | | + + + | Preferred Language | Unknown | + + + | Marital Status | Single | + + + | Spiritism Affiliation | Unknown | + + + | Race | White | + + + | Ethnic Group | Not or | + + + Author + + + | Author | [facility] | + + + | Organization | [facility] | + + + | Address | Unknown | + + + | Phone | Unavailable | + + + Support + + + + + | Name | Relationship | Address | Phone | + + + + + | Debi Fisher | ECON | [address] | | | | | [place] | | | | | [address] | | + + + + + Care Team Providers + +------+ + | Care Airplane Navigator Name | Role | Phone | + [...] | | | | | [place], | [place], [place] | | | | | | [place] [address] | [address] | | | | | | Phone: | | | | | | | [phone] | | | | | | | Fax: | | | | | | | [phone] | | +--------+--------+ + + + + Encounter Details +--------+---------+ + + + | Date | Type | Department | Care Team | Description | +--------+---------+ + + + | 10/06/ | Office | Dermatology at | Kya Valdivia, | Vitiligo (Primary | | 2017 | Visit | [facility] | ,PhD | Dx) | | | | Clinic [address] | | | | | | [place] | | | | | | [address] | | | | | | [phone] | | | +--------+---------+ + + + [...] skin cance rs including melanoma. ? The [employer] Academy [employer]ermat[employer] (AAD) recommends you wear [...] information is available at the following websites: http://[email or web address]/health/[email or web address]/[email or web address]-[email or web address]_[email or web address] - [facility] Derm atology http://www.aad.org/public/sun/smart.html - AAD Website documented in this encounter Progress Notes Kya Valdivia MD,PhD - 10/06/2016 1:00 PM [facility] DERMATOLOGY FOLLOW-UP VISIT (Last Appointment in [facility] DERMATOLOGY CC was on 08/28/16 with Kya [...] months (around 02/03/2017). Kya Valdivia M.D. Ph.D. Quality Assurance Advisor Department of Dermatology [facility] ([facility]) Dermatology documented in th is encounter Plan of Treatment Not on filedocumented as of this encounter Visit Diagnoses + + | Diagnosis | + + | Vitiligo - Primary | + + documented in this encounter
--- OUTSIDE RECORDS SUMMARY | ~2019-06-02 | XMS | Encounter Summary ---
Demographics + + + | Address | [address] | | | [place] [address] | + + + | Home Phone | | + + + | Preferred Language | Unknown | + + + | Marital Status | Single | + + + | Nondenominational Affiliation | Unknown | + + + | Race | White | + + + | Ethnic Group | Not or | + + + Author + + + | Author | [facility] | + + + | Organization | [facility] | + + + | Address | Unknown | + + + | Phone | Unavailable | + + + Support + + + + + | Name | Relationship | Address | Phone | + + + + + | Debi Fisher | ECON | [address] | | | | | [place] | | | | | [address] | | + + + + + Care Team Providers + +------+ + | Care Director Of Cardiology Name | Role | Phone | + [...] Dermatophyto | [address] | ,[address] | | | | | sis, | [address] | [address] | | | | | unspecified | [place], | [place], [place] | | | | | Dermatitis, | [place] [address] | [address] | | | | | unspecified | Phone: | | | | | | | [phone] | | | | | | | Fax: | | | | | | | [phone] | | +--------+--------+ + + + + [...] | Acquired acanthosis | | | | [address] | | nigricans | | | | [phone] | | | +--------+---------+ + + + [...] Kya Valdivia MD,PhD - 07/10/2016 11:09 AM [facility] Vitiligo: Care Instructions Your Care Instructions Vitiligo (say "rb-glb-VB-go") is a skin problem that happens when [...] about "Vitiligo: Care Instructions", log into your weave energy account at [email or web address]. You can enter B241 in the [employer] Library" search box. Not on weave energy? Review the Milestone Systemshart section of your After Visit Summary for directions on ho w to sign up. [id number] [employer]. Care instructions adapted under license by [facility]. This care instruction is for use with your licensed healthcar e professional. If you have questions about a medical condition or this instruction, always ask your healthcare professional. [employer] disclaims any warranty or liabili ty for your use of this information. Content Version: 11.0.328621; Current as of: October 05, 2015 documented [...] was potentially prediabetic. She grew up in [place], [place]. They have no history of tanning bed use, no history of serious s unburns. Outdoor hobbies and interests include: swim, soccer, tennis. Occupation: [employer]. [employer] skin type II. She does regularly [...] needed and discussed discou nted medications through [employer] Intertrigo Comment: Groin Plan: Fluconazole 150 mg weekly x 12 weeks Acanthosis nigricans Comment: axillae Plan: we discussed continued efforts at weight loss will help improve/resolve the appearanc e of these areas, discussed association with insulin resistance. RETURN VISIT: Return in about 3 months (around 10/10/2016). Kya Valdivia M.D. Ph.D. R D Internship Department of Dermatology [facility] ([facility] Dermatology documented in th is encounter Plan of Treatment Not on filedocumented as of this encounter Visit Diagnoses + + | Diagnosis | + + | Vitiligo - Primary | + + | Intertrigo Other specified erythematous condition | + + | Acquired acanthosis nigricans | + + documented in this encounter
[2019-06-02] MEDS ORDERED: HYDROXYZINE HCL50 MG PO (17:50)
== END 2019-06-02 18:15 | disposition home or self-care (01) ==
LOC: ED 15:03
DX: F41.9 Anxiety disorder, unspecified (principal); Z88.0 Allergy status to penicillin; Z88.1 Allergy status to other antibiotic agents; Z88.7 Allergy status to serum and vaccine; Z79.899 Other long term (current) drug therapy
CPT/HCPCS: 96372; 99283; J0696

== ENCOUNTER 2021-03-04 12:25 | Emergency (ER) | payer OTHER ==
[~2021-03-04] VITALS: Ht 167.6 cm; Wt 132.9 kg
[~2021-03-04 12:25] MED LIST changes: +HYDROXYZINE HCL50 MG PO
--- OUTSIDE RECORDS SUMMARY | 2021-03-04 12:28 | XMS ---
PreManage Notification: MEERA BROWER Security Waistband Setter Events No recent Security Events currently on file CRITERIA MET - PDMP CARE PROVIDERS ASPEN DAVALOS [facility]: Hospice and Palliative Medicine Current PHONE: Unknown ROGELIO GALVEZ [facility] Medicine: Sports Medicine 07/10/2016-Current PHONE: Unknown Leander has no Care Guidelines for this patient. John VISIT COUNT (12 MO.) Shilpa Vigil TOTAL 1 NOTE: Visits indicate total known visits. ED/UCC VISIT TRACKING (12 MO.) 03/04/2021 12:26 [facility] [place] TYPE: Emergency COMPLAINT: - VAGINAL BLEEDING, AND PAIN INPATIENT VISIT TRACKING (12 MO.) No inpatient visits to display in this time frame [id number]
[2021-03-04] MEDS ORDERED: PROPRANOLOL HCL60 MG PO (13:41)
[2021-03-04] MEDS ORDERED: SPRINTEC1 EACH PO (17:02)
== END 2021-03-04 17:16 | disposition home or self-care (01) ==
LOC: ED 12:25
DX: N93.8 Other specified abnormal uterine and vaginal bleeding (principal); Z88.0 Allergy status to penicillin; Z88.1 Allergy status to other antibiotic agents; Z88.7 Allergy status to serum and vaccine; Z79.899 Other long term (current) drug therapy
CPT/HCPCS: 76830; 76856; 80053; 81001; 83690; 84703; 85025; 99284-25

== ENCOUNTER 2023-04-15 00:19 | Emergency (ER) | payer OTHER ==
[~2023-04-15] VITALS: Ht 167.6 cm; Wt 131.1 kg
--- OUTSIDE RECORDS SUMMARY | ~2023-04-15 | XMS | Continuity of Care Document ---
Demographics + + + | Address | [address] | | | [place] [address] | + + + | Preferred Language | Unknown | + + + | Marital Status | Never | + + + | Sikh Affiliation | Unknown | + + + | Race | White | + + + | Ethnic Group | Unknown | + + + Author + + + | Author | [facility] | + + + | Organization | [facility] | + + + | Address | [address] | | | [place] [address] | + + + | Phone | | + + + Care Team Providers + + + + | Care Website Designer Name | Role | Phone | + + + + Unavailable | Unavailable | + + + + Allergies No information. Encounters No information. Functional Status No information. Immunizations No information. Medications No information. Problems + + + + | date | description | facility | + + + + | 2022-07-04 09:05 | PAIN IN RIGHT KNEE | [facility] | + + + + | 2022-07-04 09:05 | PAIN IN LEFT KNEE | [facility] | + + + + | 2022-09-17 08:00 | LOW BACK PAIN, UNSPECIFIED | [facility] | | | | | + + + + | 2022-10-03 07:27 | LOW BACK PAIN, UNSPECIFIED | [facility] | | | | | + + + + | 2023-01-15 12:45 | MASTODYNIA | [facility] | + + + + | 2023-03-19 10:00 | SACROCOCCYGEAL DISORDERS, | [facility] | | | NOT ELSEWHERE CLASSIFIED | | + + + + | 2023-03-19 10:00 | SACROCOCCYGEAL DISORDERS, | [facility] | | | NOT ELSEWHERE | | + + + + | 2023-03-27 12:48 | SACROCOCCYGEAL DISORDERS, | [facility] | | | NOT ELSEWHERE CLASSIFIED | | + + + + | 2023-03-27 12:48 | PALPITATIONS | [facility] | + + + + Procedures No information. Results/Labs No information. Social History No information. Vital Signs No information."
--- OUTSIDE RECORDS SUMMARY | ~2023-04-15 | XMS | Continuity of Care Document ---
Demographics + + + | Address | [address] | | | [place] [address] | + + + | Preferred Language | Unknown | + + + | Marital Status | Never | + + + | Judaism Affiliation | Unknown | + + + | Race | White | + + + | Ethnic Group | Unknown | + + + Author + + + | Author | [facility] | + + + | Organization | [facility] | + + + | Address | [address] | | | [place] [address] | + + + | Phone | | + + + Care Team Providers + + + + | Care Sole Polisher Name | Role | Phone | + [...]
[~2023-04-15 00:19] MED LIST changes: +PROPRANOLOL HCL60 MG PO; +SPRINTEC1 EACH PO
[2023-04-15] MEDS ORDERED: DULOXETINE HCL30 MG PO (00:31)
[2023-04-15] MEDS ORDERED: LEVOTHYROXINE25 MCG PO (00:32)
[2023-04-15 00:44] LABS: BASOPHILS 0.5 % (0-2); EOSINOPHILS 1.1 % (0-6); HEMATOCRIT 36.6 % (35.0-50.0); HEMOGLOBIN 12.5 g/dL (12.0-18.0); MCH 29.1 (27-36); MCHC 34.2 g/dl (30-36); MCV 84.9 fl (81-99); MONOCYTES 8.5 % (0-12); NEUTROPHILS 55.9 % (39-80); PLATELET COUNT 339 K/uL (140-440); RBC 4.31 M/ul (4.3-5.7); RDW 14.3 (10.5-15.0)
[2023-04-15 00:59] LABS: ALBUMIN 3.5 g/dL (3.4-5.0); ALBUMIN/GLOBULIN RATIO 0.85 (1.1-2.4); ANION GAP 14.6 (7-21); BILIRUBIN, TOTAL 0.4 ng/dL (0.2-1.0); BUN/CREATININE RATIO 18.82 (6.0-28.6); CALCIUM 9.1 mg/dL (8.5-10.1); CREATININE, SERUM 0.85 mg/dL (0.55-1.02); MAGNESIUM 1.9 mg/dL (1.8-2.4); POTASSIUM 3.6 mmol/L (3.5-5.1); PROTEIN, TOTAL 7.6 g/dL (6.4-8.2)
[2023-04-15 03:35] VITALS: BP 148/91
[2023-04-15 05:04] LABS: BILIRUBIN, URINE NEGATIVE (negative); KETONE, URINE NEGATIVE (Negative)
[2023-04-15 05:05] LABS: BLOOD/HGB, URINE NEGATIVE (Negative); LEUK ESTERASE, URINE NEGATIVE (negative); NITRITE, URINE NEGATIVE (negative); PH, URINE 7.5 (5-7)
== END 2023-04-15 03:35 | disposition home or self-care (01) ==
LOC: ED 00:19
PROVIDERS: Internal Medicine
DX: R10.13 Epigastric pain (principal); G89.29 Other chronic pain; Z88.7 Allergy status to serum and vaccine; Z88.0 Allergy status to penicillin; Z88.1 Allergy status to other antibiotic agents; Z91.018 Allergy to other foods; Z79.899 Other long term (current) drug therapy; Z79.890 Hormone replacement therapy
CPT/HCPCS: 36415; 80053; 81003; 83690; 83735; 84703; 85025; J1885; J2405; J7121

== ENCOUNTER 2023-05-12 22:54 | Emergency (ER) | payer OTHER ==
[~2023-05-12] VITALS: Ht 167.6 cm; Wt 129.3 kg
[~2023-05-12 22:54] MED LIST changes: +DULOXETINE HCL30 MG PO; +LEVOTHYROXINE25 MCG PO
--- OUTSIDE RECORDS SUMMARY | 2023-05-12 22:58 | XMS ---
PreManage Notification: MEERA BROWER Security Epic Analyst Events No recent Security Events currently on file CRITERIA MET - [facility] - 2 Visits in 30 Days CARE PROVIDERS ERIK WANG [facility] 03/06/2021-Current PHONE: [phone] LEONOR LARKIN [facility] 07/10/2016-Current PHONE: Unknown -Deanna- Dentist: Switchboard Operator Helper [facility] PHONE: [phone] MEGHANA BRUNNER Physician Crusher Plant Operator Current PHONE: Unknown Leander has no Care Guidelines for this patient. John VISIT COUNT (12 MO.) 2 ALBIN Vigil TOTAL 2 NOTE: Visits indicate total known visits. ED/UCC VISIT TRACKING (12 MO.) 05/12/2023 22:54 [facility] [place] TYPE: Emergency COMPLAINT: - VOMITING 04/15/2023 00:19 [facility] [place] TYPE: Emergency COMPLAINT: - ABD PAIN DIAGNOSES: - Allergy status to other antibiotic agents - Allergy status to penicillin - Allergy status to serum and vaccine - Allergy to other foods - Epigastric pain - Hormone replacement therapy - Other chronic pain - Other usp (current) drug therapy INPATIENT VISIT TRACKING (12 MO.) No inpatient visits to display in this time frame [id number]
[2023-05-12] MEDS ORDERED: QELBREE200 MG PO (23:05)
[2023-05-12 23:39] LABS: BASOPHILS 0.3 % (0-2); EOSINOPHILS 0.5 % (0-6); HEMATOCRIT 43.7 % (35.0-50.0); HEMOGLOBIN 14.2 g/dL (12.0-18.0); LYMPHOCYTES 16.5 % (24-44); MCH 28.7 (27-36); MCHC 32.6 g/dl (30-36); MCV 88.1 fl (81-99); MONOCYTES 6.2 % (0-12); NEUTROPHILS 76.5 % (39-80); PLATELET COUNT 308 K/uL (140-440); RBC 4.95 M/ul (4.3-5.7); RDW 14.7 (10.5-15.0)
[2023-05-12 23:44] LABS: INFLUENZA B NAA NEGATIVE (NEGATIVE); RESPIRATORY SYNCYTIAL VIR NAA NEGATIVE (NEGATIVE)
[2023-05-12 23:52] LABS: ALBUMIN 3.6 g/dL (3.4-5.0); ALBUMIN/GLOBULIN RATIO 0.95 (1.1-2.4); ANION GAP 15.5 (7-21); BILIRUBIN, TOTAL 0.5 ng/dL (0.2-1.0); BUN/CREATININE RATIO 13.79 (6.0-28.6); CALCIUM 9.2 mg/dL (8.5-10.1); CREATININE, SERUM 0.87 mg/dL (0.55-1.02); POTASSIUM 3.5 mmol/L (3.5-5.1); PROTEIN, TOTAL 7.4 g/dL (6.4-8.2)
[2023-05-13] MEDS ORDERED: LOMOTIL TABLET1 EACH PO (01:39)
[2023-05-13] MEDS ORDERED: ONDANSETRON ODT8 MG PO (01:39)
[2023-05-13 02:08] VITALS: BP 117/68
== END 2023-05-13 02:10 | disposition home or self-care (01) ==
LOC: ED 22:54
PROVIDERS: Family Medicine
DX: K52.9 Noninfective gastroenteritis and colitis, unspecified (principal); Z20.822 Contact with and (suspected) exposure to COVID-19; E03.9 Hypothyroidism, unspecified; G43.909 Migraine, unspecified, not intractable, without status migrainosus; F43.10 Post-traumatic stress disorder, unspecified; Z88.7 Allergy status to serum and vaccine; Z91.018 Allergy to other foods; Z88.0 Allergy status to penicillin; Z88.1 Allergy status to other antibiotic agents; Z79.899 Other long term (current) drug therapy
CPT/HCPCS: 36415; 74177; 80053; 83690; 84703; 85025; 87502; 96361; 96375; 99284-25; A9270; C9803; J0780; J1885; J7030; Q9967; U0002

== ENCOUNTER 2023-05-18 21:34 | Emergency (ER) | payer OTHER ==
[~2023-05-18] VITALS: Ht 167.6 cm; Wt 128.8 kg
[~2023-05-18 21:34] MED LIST changes: +LOMOTIL TABLET1 EACH PO; +ONDANSETRON ODT8 MG PO; +QELBREE200 MG PO
--- OUTSIDE RECORDS SUMMARY | 2023-05-18 21:41 | XMS ---
PreManage Notification: MEERA BROWER Security Estimate Clerk Events No recent Security Events currently on file CRITERIA MET - [facility] - 2 Visits in 30 Days CARE PROVIDERS ERIK WANG [facility] 03/06/2021-Current PHONE: [phone] LEONOR LARKIN [facility] 07/10/2016-Current PHONE: Unknown -Deanna- Dentist: Broodmare Barn Groom [facility] PHONE: [phone] MEGHANA BRUNNER Physician Cartoon Artist Current PHONE: Unknown Leander has no Care Guidelines for this patient. John VISIT COUNT (12 MO.) 3 ALBIN Vigil TOTAL 3 NOTE: Visits indicate total known visits. ED/UCC VISIT TRACKING (12 MO.) 05/18/2023 21:35 [facility] [place] TYPE: Emergency COMPLAINT: - DENTAL PAIN 05/12/2023 22:54 [facility] [place] TYPE: Emergency COMPLAINT: - VOMITING DIAGNOSES: - Allergy status to other antibiotic agents - Allergy status to penicillin - Allergy status to serum and vaccine - Allergy to other foods - Contact with and (suspected) exposure to COVID-19 - Hypothyroidism, unspecified - Migraine, unspecified, not intractable, without status migrainosus - Noninfective gastroenteritis and colitis, unspecified - Other custodial (current) drug therapy - Post-traumatic stress disorder, unspecified - Unspecified abdominal pain 04/15/2023 00:19 [facility] [place] TYPE: Emergency COMPLAINT: - ABD PAIN DIAGNOSES: - Allergy status to other antibiotic agents - Allergy status to penicillin - Allergy status to serum and vaccine - Allergy to other foods - Epigastric pain - Hormone replacement therapy - Other chronic pain - Other custodial (current) drug therapy INPATIENT VISIT TRACKING (12 MO.) No inpatient visits to display in this time frame [id number]
[2023-05-19] MEDS ORDERED: CEPHALEXIN500 M1 PO (00:42)
[2023-05-19 00:50] VITALS: BP 150/103
== END 2023-05-19 00:50 | disposition home or self-care (01) ==
LOC: ED 21:34
DX: K08.89 Other specified disorders of teeth and supporting structures (principal); E03.9 Hypothyroidism, unspecified; Z88.0 Allergy status to penicillin; Z88.7 Allergy status to serum and vaccine; Z88.1 Allergy status to other antibiotic agents; Z91.02 Food additives allergy status; Z79.899 Other long term (current) drug therapy
CPT/HCPCS: 99282; A9270

== ENCOUNTER 2023-07-09 00:25 | Emergency (ER) | payer OTHER ==
[~2023-07-09] VITALS: Ht 167.6 cm; Wt 128.8 kg
[~2023-07-09 00:25] MED LIST changes: +CEPHALEXIN500 M1 PO; +CIPRO500 MG PO; +METRONIDAZOLE500 MG PO
[2023-07-09 00:48] LABS: BASOPHILS 0.4 % (0-2); EOSINOPHILS 0.8 % (0-6); HEMATOCRIT 48.9 % (35.0-50.0); HEMOGLOBIN 16.4 g/dL (12.0-18.0); LYMPHOCYTES 29.1 % (24-44); MCH 29.5 (27-36); MCHC 33.5 g/dl (30-36); MCV 87.9 fl (81-99); MONOCYTES 5.9 % (0-12); NEUTROPHILS 63.8 % (39-80); PLATELET COUNT 388 K/uL (140-440); RBC 5.57 M/ul (4.3-5.7); RDW 14.3 (10.5-15.0)
[2023-07-09 01:03] LABS: ALBUMIN 3.8 g/dL (3.4-5.0); ALBUMIN/GLOBULIN RATIO 0.9 (1.1-2.4); ANION GAP 20.7 (7-21); BILIRUBIN, TOTAL 0.5 ng/dL (0.2-1.0); BUN/CREATININE RATIO 12.94 (6.0-28.6); CALCIUM 9.7 mg/dL (8.5-10.1); CREATININE, SERUM 0.85 mg/dL (0.55-1.02); POTASSIUM 3.7 mmol/L (3.5-5.1)
[2023-07-09 02:44] LABS: BILIRUBIN, URINE POSITIVE (negative); BLOOD/HGB, URINE SMALL (Negative); KETONE, URINE SMALL (Negative); LEUK ESTERASE, URINE NEGATIVE (negative); NITRITE, URINE POSITIVE (negative)
[2023-07-09 02:51] LABS: EPITHELIAL CELLS, URINE SQUAMOUS 3+ /lpf (0-1+)
[2023-07-09 02:52] LABS: BACTERIA, URINE 2+ /hpf (negative); CRYSTALS, URINE CALCIUM OXALATE 4+ (0-1+)
[2023-07-09 02:53] LABS: REFLEX CULTURE, URINE No (No)
[2023-07-09 03:36] VITALS: BP 124/83
== END 2023-07-09 03:36 | disposition home or self-care (01) ==
LOC: ED 00:25
PROVIDERS: Internal Medicine
DX: K52.9 Noninfective gastroenteritis and colitis, unspecified (principal); E03.9 Hypothyroidism, unspecified; G43.909 Migraine, unspecified, not intractable, without status migrainosus; F43.10 Post-traumatic stress disorder, unspecified; Z88.7 Allergy status to serum and vaccine; Z91.018 Allergy to other foods; Z91.02 Food additives allergy status; Z88.0 Allergy status to penicillin; Z79.899 Other long term (current) drug therapy
CPT/HCPCS: 36415; 51798; 80053; 81001; 83690; 84703; 85025; 96361; 99284-25; A9270; J1885; J2405; J7121

== ENCOUNTER 2024-02-03 12:57 | Observation (INO) | payer OTHER ==
[~2024-02-03] VITALS: Ht 167.6 cm; Wt 133.4 kg
[2024-02-03 13:30] LABS: BASOPHILS 0.3 % (0-2); EOSINOPHILS 0.1 % (0-6); HEMATOCRIT 41.2 % (35.0-50.0); LYMPHOCYTES 15.1 % (24-44); MCH 29.1 (27-36); MCHC 33.9 g/dl (30-36); MCV 85.8 fl (81-99); MONOCYTES 4.7 % (0-12); NEUTROPHILS 79.8 % (39-80); PLATELET COUNT 375 K/uL (140-440); RBC 4.81 M/ul (4.3-5.7); RDW 14.1 (10.5-15.0)
[2024-02-03] MEDS ORDERED: ondansetron HCL 4 MG/2 ML VIAL IV ONE ×3 (13:30→16:15)
[2024-02-03] MEDS ORDERED: SODIUM CHLORIDE 0.9% 2,000 ML IV ONE (13:30)
[2024-02-03] MEDS ORDERED: GUANFACINE HCL E1 MG PO (13:36)
[2024-02-03] MEDS ORDERED: NP THYROID30 MG PO (13:36)
[2024-02-03] MEDS ORDERED: VITAMIN D21250 MCG PO (13:36)
[2024-02-03] MEDS ORDERED: OMEPRAZOLE40 MG PO (13:36)
[2024-02-03 13:52] LABS: ACETAMINOPHEN 27 ug/mL (10-30); ALBUMIN 4.5 g/dL (3.4-5.0); ALBUMIN/GLOBULIN RATIO 1.15 (1.1-2.4); ALCOHOL, MEDICAL <3 ng/dL (<3); ALKALINE PHOSPHATASE 94 U/L (46-116); ALT (SGPT) 44 U/L (14-59); ANION GAP 18.5 (7-21); AST (SGOT) 16 U/L (15-37); BUN/CREATININE RATIO 6.74 (6.0-28.6); CALCIUM 8.9 mg/dL (8.5-10.1); CARBON DIOXIDE 22 mmol/L (21-32); CHLORIDE 102 mmol/L (98-107); CREATININE, SERUM 0.89 mg/dL (0.55-1.02); GLOMERULAR FILTRATION RATE,EST 92 mL/min (>60); POTASSIUM 3.5 mmol/L (3.5-5.1); PROTEIN, TOTAL 8.4 g/dL (6.4-8.2); SALICYLATE 32.6 mg/dL (2.8-20.0); TSH, 3RD GENERATION 2.275 uIU/mL (0.358-3.740); UREA NITROGEN 6 mg/dL (7-18)
[2024-02-03] MEDS ORDERED: METOCLOPRAMIDE HCL 10 MG/2 ML SDV IV ONE (14:15)
[2024-02-03] MEDS ORDERED: CHARCOAL/SORBITOL SOLUTION 50 GM/240 ML BTL PO ONE (14:30)
[2024-02-03] MEDS ORDERED: SODIUM BICARBONATE 150 MEQ in DEXTROSE 5% 1,000 ML IV ONE (14:30)
[2024-02-03 14:48] LABS: BILIRUBIN, URINE NEGATIVE (negative); BLOOD/HGB, URINE LARGE (Negative); KETONE, URINE NEGATIVE (Negative); LEUK ESTERASE, URINE TRACE (negative); NITRITE, URINE NEGATIVE (negative)
[2024-02-03 14:55] LABS: BACTERIA, URINE 2+ /hpf (negative); CASTS, URINE NONE SEEN \\lpf; COLLECTION TYPE, URINE CLEAN CATCH; CRYSTALS, URINE NONE SEEN (0-1+); EPITHELIAL CELLS, URINE SQUAMOUS 2+ /lpf (0-1+); REFLEX CULTURE, URINE No (No); WHITE BLOOD CELLS, URINE 21-40 /HPF (0-5)
[2024-02-03 15:02] LABS: AMPHETAMINES, URINE NEGATIVE (NEGATIVE); BARBITURATES, URINE NEGATIVE (NEGATIVE); BENZODIAZEPINE, URINE NEGATIVE (NEGATIVE); BUPRENORPHINE, URINE NEGATIVE (NEGATIVE); CANNABINOID, URINE NEGATIVE (NEGATIVE); COCAINE, URINE NEGATIVE (NEGATIVE); ECSTASY, URINE NEGATIVE (NEGATIVE); FENTANYL, URINE NEGATIVE (NEGATIVE); METHADONE, URINE NEGATIVE (NEGATIVE); OPIATES, URINE NEGATIVE (NEGATIVE); OXYCODONE, URINE NEGATIVE (NEGATIVE); PHENCYCLIDINE, URINE NEGATIVE (NEGATIVE)
[2024-02-03] MEDS ORDERED: LORazepam 2 MG/ML VIAL IV ONE (16:00)
[2024-02-03] MEDS ORDERED: droPERidol 5 MG/2 ML VIAL IV ONE (16:00)
[2024-02-03] MEDS ORDERED: PROCHLORPERAZINE EDISYLATE 10 MG/2 ML VIAL IV ONE (16:15)
[2024-02-03 16:54] LABS: ANION GAP 18.7 (7-21); BUN/CREATININE RATIO 9.3 (6.0-28.6); CALCIUM 8.4 mg/dL (8.5-10.1); CREATININE, SERUM 0.86 mg/dL (0.55-1.02); POTASSIUM 3.7 mmol/L (3.5-5.1)
[2024-02-03 17:07] LABS: ACETAMINOPHEN 25 ug/mL (10-30); SALICYLATE 29.9 mg/dL (2.8-20.0)
--- NOTE | 2024-02-03 18:29 | EKG ---
[facility] [address] [place] [address] Signed Normal sinus rhythm Normal ECG No previous ECGs available Confirmed by Geo Bocanegra MD ([id number]) on 02/03/2024 6:29:45 PM Electronically Signed By: GEO BOCANEGRA 02/03/24 1829 PATIENT NAME: MEERA BROWER WILBERT Electrocardiogram DATE OF : [birth year] PHYSICIAN: GEO BOCANEGRA REPORT #: [id number] REPORT IS CONFIDENTIAL AND NOT TO BE RELEASED WITHOUT AUTHORIZATION
[2024-02-03] MEDS ORDERED: FAMOTIDINE 20 MG/ 2 ML VIAL IV ONE (20:00)
[2024-02-03 22:39] LABS: SALICYLATE 30.3 mg/dL (2.8-20.0)
[2024-02-03 23:38] LABS: SALICYLATE 30.5 mg/dL (2.8-20.0)
[2024-02-04] VITALS (7 sets, daily range): BP systolic 74–136; BP diastolic 53–84
[2024-02-04] MEDS ORDERED: GUANFACINE HCL 1 MG TAB PO SCH
[2024-02-04] MEDS ORDERED: SODIUM BICARBONATE 150 MEQ in DEXTROSE 5% 1,000 ML IV SCH (00:30)
[2024-02-04] MEDS ORDERED: POTASSIUM CHLORIDE 40 MEQ/20 ML VIAL ONE (00:58)
[2024-02-04] MEDS ORDERED: SODIUM BICARBONATE IV SCH (01:00)
[2024-02-04] MEDS ORDERED: DEXTROSE 5% IV SCH (01:00)
[2024-02-04] MEDS ORDERED: POTASSIUM CHLORIDE 40 MEQ IV SCH (01:00)
--- NOTE | 2024-02-04 01:10 | NUR ---
PT ARRIVES TO FLOOR VIA WHEELCHAIR WITH ED RN - ALERT AND ORIENTED, INTERACTIVE APPROPRIATLEY TO SITUATION. ADMISSION ASSESSMENT COMPLETE - BICARB DRIP STARTED. PT DENIES PAIN OR NAUSEA. PT DENIES SUICIDAL THOUGHTS CURRENTLY, STATES THEY FEEL COMFORTABLE WITH SAFETY PLAN AGREED UPON WITH CCS EARLIER IN ED. NSR ON MONITOR, VS WNL. PT ORIENTED TO ROOM AND CALL LIGHT.
--- NOTE | 2024-02-04 02:19 | NUR ---
PT RESTING IN BED WITHOUT COMPLAINTS - LABS DRAWN FROM IV SITE. CALL LIGHT IN REACH.
[2024-02-04 02:33] LABS: ANION GAP 17.3 (7-21); BUN/CREATININE RATIO 12.72 (6.0-28.6); CALCIUM 7.7 mg/dL (8.5-10.1); CARBON DIOXIDE 24 mmol/L (21-32); CHLORIDE 105 mmol/L (98-107); GLOMERULAR FILTRATION RATE,EST 72 mL/min (>60); POTASSIUM 3.3 mmol/L (3.5-5.1); SALICYLATE 26.8 mg/dL (2.8-20.0); UREA NITROGEN 14 mg/dL (7-18)
--- NOTE | 2024-02-04 03:55 | NUR ---
PT RESTING ON SIDE IN BED WITH EYES CLOSED, RR EVEN AND UNLABORED, VS WNL ON MONITOR.
--- NOTE | 2024-02-04 04:11 | NUR ---
UPDATE PROVIDED TO POISON CONTROL. RECOMMENDATION MADE BY POISON CONTROL TO STOP BICARB INFUSION AND RECHECK BMP AND SALICYLATE LEVELS IN SIX HOURS FROM NOW.
--- NOTE | 2024-02-04 05:47 | NUR ---
PT RESTING IN BED ON BACK WITH EYES CLOSED, RR EVEN AND UNLABORED. VS WNL ON MONITOR, CALL LIGHT IN REACH.
--- NOTE | 2024-02-04 06:26 | NUR ---
UPDATE PROVIDED TO . ORDERS RECEIVED FOR PO POTASSIUM REPLACEMENT, SEE EMAR.
[2024-02-04] MEDS ORDERED: POTASSIUM CHLORIDE 10 MEQ TABCR PO ONE ×2 (06:30→09:00)
--- NOTE | 2024-02-04 06:46 | NUR ---
PT AWAKE AND SITTING ON EDGE OF BED WITHOUT COMPLAINTS. POC AND LABS EXPLAINED. PT DENIES QUESTIONS AT THIS TIME AND IS OPTIMISTIC TO DC HOME TODAY.
--- NOTE | 2024-02-04 08:30 | NUR ---
MED REC COMPLETE
--- NOTE | 2024-02-04 08:55 | NUR ---
Scheduled PO K administered and assessment complete. Patient resting in bed at this time and states no pain. They state experiencing slight nausea, slight tinnitus, but significantly improved from yesterday. Assessment benign. RA, LSC, HRR. Skin intact. Pulses strong, slight numbness in feet but patient states improved. Tolerated regular diet for breakfast.
--- NOTE | 2024-02-04 09:20 | NUR ---
Spoke with pt and her mom. Confirmed its ok to speak in front of mother. Pt in agreement. Pt states she lives with her mom in a split level home. She c/o of pain and multiple medical problems. States it is hard for her to navigate stairs. She does have a hand rail on her stairs. Pt plans on moving into her own place in May. It will have a ramp. Pt stating she was off her meds for 3 wks as she could not get auth through [employer]. She gets her meds through [facility] [place]. Pt has applied for disability as she states medical issues and ADHD. She uses resources through [facility], DHS food stamps, transport through [employer] and taxi tickets. She denies further needs. She is filling out an Advanced Directive. We discussed she will need to have this notorized. I encouraged her to return it to the hospital and we can scan into the system. Pt is jumping from topic to topic frequently. I asked if she has considered or requests a correctional counselor/case manager through [employer]. She has not, but would like one. I let her know I can submit a request. I will need to send her chart. Pt and mom both agree. Pt states she will be returning to work in May as an [employer]. She denies other needs.
[2024-02-04 10:16] LABS: ANION GAP 16.9 (7-21); BUN/CREATININE RATIO 13.79 (6.0-28.6); CALCIUM 7.8 mg/dL (8.5-10.1); CARBON DIOXIDE 22 mmol/L (21-32); CHLORIDE 104 mmol/L (98-107); CREATININE, SERUM 1.16 mg/dL (0.55-1.02); GLOMERULAR FILTRATION RATE,EST 67 mL/min (>60); POTASSIUM 2.9 mmol/L (3.5-5.1); SALICYLATE 23.9 mg/dL (2.8-20.0); UREA NITROGEN 16 mg/dL (7-18)
--- NOTE | 2024-02-04 11:05 | NUR ---
This RN called poison control with updated salicylate level, patient is cleared from poision control standpoint at this time. Notified Dr. Rodriguez.
--- NOTE | 2024-02-04 11:26 | NUR ---
UR CLINICAL REVIEW: CESAR LIN OBS 02/04/24 @ 0023 MEETS AUTH PENDING CLINICAL REVIEW SAFETY PLAN HOME AT [place] 02/05/24
--- NOTE | 2024-02-04 11:36 | NUR ---
Completed on Line Form requesting case management for this pt through [facility]. Faxed face sheet, ER note, H&P, labs to [facility] referral.
[2024-02-04] MEDS ORDERED: PHARMACY RENAL DOSE ADJUSTMENT 1 DOSE MISC PO SCH (12:00)
--- NOTE | 2024-02-04 12:21 | NUR ---
This RN asks patient about followup with their PCP after discharge. Patient states that they have an appointment with Kinza Pope "next month", when this RN offers to make f/u appt in one week, patient states that "if you make an appointment I won't go because I have so many appointments for this and I know myself"-- this RN honors patients statement at this time and encourages both patient and their mother to make a followup appointment in the next week.
== END 2024-02-04 13:05 | disposition home or self-care (01) ==
LOC: ED 12:57 → CCU 13:00 → ED 02-04 00:29 → CCU 02-04 13:05
PROVIDERS: Emergency Medicine; Internal Medicine; ADMIT Internal Medicine; ATTEND Internal Medicine
DX: T39.092A Poisoning by salicylates, intentional self-harm, initial encounter (principal); T39.312A Poisoning by propionic acid derivatives, intentional self-harm, initial encounter; T39.1X2A Poisoning by 4-Aminophenol derivatives, intentional self-harm, initial encounter; T39.012A Poisoning by aspirin, intentional self-harm, initial encounter; F32.9 Major depressive disorder, single episode, unspecified; F41.1 Generalized anxiety disorder; E03.9 Hypothyroidism, unspecified; Z88.7 Allergy status to serum and vaccine; Z88.0 Allergy status to penicillin; Z88.1 Allergy status to other antibiotic agents; Z79.899 Other long term (current) drug therapy
CPT/HCPCS: 36415; 80048; 80053; 80307; 81001; 84443; 84703; 85025; 93005; 93010; A9270; G0480; J2405; J2765; J3480; J7030; J7070

== ENCOUNTER 2024-03-10 22:14 | Emergency (ER) | payer OTHER ==
[~2024-03-10] VITALS: Ht 167.6 cm; Wt 140.0 kg
[~2024-03-10 22:14] MED LIST changes: +GUANFACINE HCL E1 MG PO; +NP THYROID30 MG PO; +OMEPRAZOLE40 MG PO; +VITAMIN D21250 MCG PO
[2024-03-10 23:55] VITALS: BP 137/79
== END 2024-03-10 23:58 | disposition home or self-care (01) ==
LOC: ED 22:14
DX: S61.210A Laceration without foreign body of right index finger without damage to nail, initial encounter (principal); W26.0XXA Contact with knife, initial encounter; E03.9 Hypothyroidism, unspecified; Z79.890 Hormone replacement therapy; Z79.899 Other long term (current) drug therapy; Z88.1 Allergy status to other antibiotic agents; Z88.0 Allergy status to penicillin; Z91.014 Allergy to mammalian meats; Z88.8 Allergy status to other drugs, medicaments and biological substances; Z91.018 Allergy to other foods
CPT/HCPCS: 99282

== ENCOUNTER 2024-05-12 06:50 | Emergency (ER) | payer OTHER ==
[~2024-05-12] VITALS: Ht 167.6 cm; Wt 139.3 kg
[2024-05-12] MEDS ORDERED: PANTOPRAZOLE SO40 MG PO (07:02)
[2024-05-12 07:20] LABS: BASOPHILS 0.7 % (0-2); EOSINOPHILS 0.7 % (0-6); HEMATOCRIT 44.1 % (35.0-50.0); HEMOGLOBIN 14.8 g/dL (12.0-18.0); LYMPHOCYTES 24.6 % (24-44); MCH 28.9 (27-36); MCHC 33.5 g/dl (30-36); MCV 86.3 fl (81-99); MONOCYTES 6.8 % (0-12); NEUTROPHILS 67.2 % (39-80); PLATELET COUNT 336 K/uL (140-440); RBC 5.11 M/ul (4.3-5.7); RDW 14.6 (10.5-15.0)
[2024-05-12] MEDS ORDERED: METOCLOPRAMIDE HCL 10 MG/2 ML SDV IV ONE (07:30)
[2024-05-12] MEDS ORDERED: SODIUM CHLORIDE 0.9% 1,000 ML IV ONE (07:30)
[2024-05-12] MEDS ORDERED: KETOROLAC TROMETHAMINE 30 MG/ML VIAL IV ONE (07:30)
[2024-05-12 07:33] LABS: ALBUMIN 3.9 g/dL (3.4-5.0); ALBUMIN/GLOBULIN RATIO 0.81 (1.1-2.4); BILIRUBIN, TOTAL 0.4 ng/dL (0.2-1.0); BUN/CREATININE RATIO 8.57 (6.0-28.6); CREATININE, SERUM 1.05 mg/dL (0.55-1.02); PROTEIN, TOTAL 8.7 g/dL (6.4-8.2)
[2024-05-12] MEDS ORDERED: DICYCLOMINE HCL20 MG PO (08:21)
[2024-05-12] MEDS ORDERED: DICYCLOMINE HCL 10 MG CAP PO ONE (08:30)
[2024-05-12 09:00] VITALS: BP 145/79
[2024-05-15] MEDS ORDERED: TESTOSTERO100 MG/1 M IM (00:54)
== END 2024-05-12 09:00 | disposition home or self-care (01) ==
LOC: ED 06:50
PROVIDERS: Emergency Medicine
DX: R10.13 Epigastric pain (principal); R10.12 Left upper quadrant pain; E03.9 Hypothyroidism, unspecified; G43.909 Migraine, unspecified, not intractable, without status migrainosus; F43.10 Post-traumatic stress disorder, unspecified; Z79.899 Other long term (current) drug therapy; Z88.0 Allergy status to penicillin; Z88.1 Allergy status to other antibiotic agents; Z91.018 Allergy to other foods; Z88.8 Allergy status to other drugs, medicaments and biological substances
CPT/HCPCS: 36415; 80053; 83690; 83735; 84703; 85025; 96374; 99284-25; J1885; J7030

== ENCOUNTER 2024-07-09 09:22 | Emergency (ER) | payer OTHER ==
[~2024-07-09] VITALS: Ht 167.6 cm; Wt 140.6 kg
[~2024-07-09 09:22] MED LIST changes: +CARAFATE1 GM PO; +DICYCLOMINE HCL10 MG PO; +DICYCLOMINE HCL20 MG PO; +PANTOPRAZOLE SO40 MG PO; +TESTOSTERO100 MG/1 M IM
[2024-07-09 11:07] VITALS: BP 115/84
== END 2024-07-09 11:08 | disposition home or self-care (01) ==
LOC: ED 09:22
DX: K59.00 Constipation, unspecified (principal); Z88.7 Allergy status to serum and vaccine; Z91.018 Allergy to other foods; Z88.0 Allergy status to penicillin; Z88.8 Allergy status to other drugs, medicaments and biological substances; Z79.899 Other long term (current) drug therapy
CPT/HCPCS: 99283

== ENCOUNTER 2024-08-03 05:45 | Emergency (ER) | payer OTHER ==
[~2024-08-03] VITALS: Ht 167.6 cm; Wt 141.0 kg
--- OUTSIDE RECORDS SUMMARY | 2024-08-03 05:50 | XMS ---
PreManage Notification: MEERA BROWER Security Accountant Helper Events No recent Security Events currently on file CRITERIA MET - [facility] - 2 Visits in 30 Days CARE PROVIDERS LEONOR LARKIN [facility] 07/10/2016-Current PHONE: Unknown -[facility] Dentist: Tonsorial Artist Current [place] PHONE: [phone] -Deanna- Dentist: Tonsorial Artist [facility] PHONE: [phone] -Garo- Dentist: Tonsorial Artist Current [facility] PHONE: [phone] ESTEFANY REYNOLDS Student in an Organized Health Care Current Education/Training Program PHONE: [phone] Leander has no Care Guidelines for this patient. John VISIT COUNT (12 MO.) 6 ALBIN Vigil TOTAL 6 NOTE: Visits indicate total known visits. ED/UCC VISIT TRACKING (12 MO.) 08/03/2024 05:46 ALBIN Vigil [place] TYPE: Emergency COMPLAINT: - STOMACH PAIN 07/09/2024 09:22 [facility] Vigil [place] TYPE: Emergency COMPLAINT: - ABDOMINAL PAIN DIAGNOSES: - Allergy status to other drugs, medicaments and biological substances - Allergy status to penicillin - Allergy status to serum and vaccine - Allergy to other foods - Constipation, unspecified - Other senior care (current) drug therapy 05/15/2024 00:[address] [facility] [place] TYPE: Emergency COMPLAINT: - CHOLEITIS DIAGNOSES: - Allergy status to other antibiotic agents - Allergy status to other drugs, medicaments and biological substances - Allergy status to serum and vaccine - Allergy to mammalian meats - Allergy to other foods - Food additives allergy status - Hypothyroidism, unspecified - Other senior care (current) drug therapy - Upper abdominal pain, unspecified 05/12/2024 06:50 [facility] [place] TYPE: Emergency COMPLAINT: - VOMITING DIAGNOSES: - Allergy status to other antibiotic agents - Allergy status to other drugs, medicaments and biological substances - Allergy status to penicillin - Allergy to other foods - Epigastric pain - Hypothyroidism, unspecified - Left upper quadrant pain - Migraine, unspecified, not intractable, without status migrainosus - Nausea with vomiting, unspecified - Other senior care (current) drug therapy - Post-traumatic stress disorder, unspecified 03/10/2024 22:15 [facility] [place] TYPE: Emergency COMPLAINT: - FINGER LACERATION DIAGNOSES: - Allergy status to other antibiotic agents - Allergy status to other drugs, medicaments and biological substances - Allergy status to penicillin - Allergy to mammalian meats - Allergy to other foods - Contact with knife, initial encounter - Hormone replacement therapy - Hypothyroidism, unspecified - Laceration without foreign body of right index finger without damage to nail, initial encounter - Other senior care (current) drug therapy 12/16/2023 04:23 [facility] [place] TYPE: Emergency COMPLAINT: - VOMITING DIAGNOSES: - Allergy status to other antibiotic agents - Allergy status to other drugs, medicaments and biological substances - Allergy status to penicillin - Allergy status to serum and vaccine - Allergy to mammalian meats - Allergy to other foods - Attention-deficit hyperactivity disorder, unspecified type - Depression, unspecified - Hypothyroidism, unspecified - Nausea with vomiting, unspecified - Noninfective gastroenteritis and colitis, unspecified - Post-traumatic stress disorder, unspecified INPATIENT VISIT TRACKING (12 MO.) 02/03/2024 13:00 [facility] [place] TYPE: Observation COMPLAINT: - SALICYLATE OVERDOSE DIAGNOSES: - Allergy status to other antibiotic agents - Allergy status to penicillin - Allergy status to serum and vaccine - Generalized anxiety disorder - Hypothyroidism, unspecified - Major depressive disorder, single episode, unspecified - Other senior care (current) drug therapy - Poisoning by 4-Aminophenol derivatives, intentional self-harm, initial encounter - Poisoning by aspirin, intentional self-harm, initial encounter - Poisoning by propionic acid derivatives, intentional self-harm, initial encounter - Poisoning by salicylates, intentional self-harm, initial encounter [email or web address]
[2024-08-03] MEDS ORDERED: VITAMIN D350 MCG PO (05:59)
[2024-08-03] MEDS ORDERED: ondansetron HCL 4 MG/2 ML VIAL IV ONE (06:00)
[2024-08-03] MEDS ORDERED: MORPHINE SULFATE 4 MG/ML VIAL IV ONE ×2 (06:00→06:30)
[2024-08-03] MEDS ORDERED: SODIUM CHLORIDE 0.9% 1,000 ML IV ONE (06:00)
[2024-08-03 06:04] LABS: BASOPHILS 0.5 % (0-2); EOSINOPHILS 2.1 % (0-6); LYMPHOCYTES 32.8 % (24-44); MCH 29.6 (27-36); MCHC 34.1 g/dl (30-36); MCV 86.9 fl (81-99); MONOCYTES 8.2 % (0-12); NEUTROPHILS 56.4 % (39-80); PLATELET COUNT 272 K/uL (140-440); RBC 4.38 M/ul; RDW 14.5 (10.5-15.0)
[2024-08-03 06:21] LABS: ALBUMIN 3.6 g/dL (3.4-5.0); ALBUMIN/GLOBULIN RATIO 0.88 (1.1-2.4); ALKALINE PHOSPHATASE 103 U/L (46-116); ALT (SGPT) 55 U/L (14-59); ANION GAP 14.5 (7-21); AST (SGOT) 26 U/L (15-37); BILIRUBIN, TOTAL 0.3 ng/dL (0.2-1.0); BUN/CREATININE RATIO 9.52 (6.0-28.6); CALCIUM 8.8 mg/dL (8.5-10.1); CARBON DIOXIDE 26 mmol/L (21-32); CHLORIDE 103 mmol/L (98-107); CREATININE, SERUM 0.84 mg/dL (0.70-1.30); POTASSIUM 3.5 mmol/L (3.5-5.1); PROTEIN, TOTAL 7.7 g/dL (6.4-8.2); UREA NITROGEN 8 mg/dL (7-18)
[2024-08-03] MEDS ORDERED: ONDANSETRON 4 MG HOME.PACK SL ONE (08:00)
[2024-08-03] MEDS ORDERED: DICYCLOMINE HCL 10 MG HOME.PACK PO ONE (08:00)
[2024-08-03] MEDS ORDERED: TRAMADOL HCL 50 MG HOME.PACK PO ONE (08:00)
[2024-08-03] MEDS ORDERED: LEVSIN-SL0.125 MG SL (08:04)
[2024-08-03 08:08] LABS: BILIRUBIN, URINE NEGATIVE (negative); BLOOD/HGB, URINE NEGATIVE (Negative); KETONE, URINE NEGATIVE (Negative); LEUK ESTERASE, URINE NEGATIVE (negative); NITRITE, URINE NEGATIVE (negative); PH, URINE 5.5 (5-7)
[2024-08-03 08:28] VITALS: BP 134/71
== END 2024-08-03 08:28 | disposition home or self-care (01) ==
LOC: ED 05:45
PROVIDERS: Family Medicine
DX: K52.9 Noninfective gastroenteritis and colitis, unspecified (principal); E03.9 Hypothyroidism, unspecified; Z79.890 Hormone replacement therapy; Z79.899 Other long term (current) drug therapy; Z88.7 Allergy status to serum and vaccine; Z88.1 Allergy status to other antibiotic agents; Z88.0 Allergy status to penicillin; Z91.014 Allergy to mammalian meats; Z91.018 Allergy to other foods
CPT/HCPCS: 36415; 74177; 80053; 81003; 83690; 84703; 85025; 96375; 99284-25; A9270; J2270; J2405; J7030; Q9967

== ENCOUNTER 2025-05-29 20:38 | Emergency (ER) | payer OTHER ==
[~2025-05-29] VITALS: Ht 167.6 cm; Wt 145.0 kg
[~2025-05-29 20:38] MED LIST changes: +LEVSIN-SL0.125 MG SL; +VITAMIN D350 MCG PO
--- OUTSIDE RECORDS SUMMARY | 2025-05-29 20:43 | XMS ---
PreManage Notification: MEERA BROWER Security Tank Pumper Events No recent Security Events currently on file CRITERIA MET - [facility] - 2 Visits in 30 Days CARE PROVIDERS LEONOR LARKIN [facility] 07/10/2016-Current PHONE: Unknown -[facility] Dentist: Buttonhole Marker Current [place] PHONE: [phone] ESTEFANY REYNOLDS Student in an Organized Health Care Current Education/Training Program PHONE: [phone] Leander has no Care Guidelines for this patient. E.D. VISIT COUNT (12 MO.) 4 ALBIN Vigil TOTAL 4 NOTE: Visits indicate total known visits. ED/UCC VISIT TRACKING (12 MO.) 05/29/2025 20:38 [facility] [place] TYPE: Emergency COMPLAINT: - NECK PAIN 05/20/2025 15:20 [facility] [place] TYPE: Emergency COMPLAINT: - LT EYE INJURY 08/03/2024 05:46 [facility] [place] TYPE: Emergency COMPLAINT: - ABDOMINAL PAIN DIAGNOSES: - Allergy status to other antibiotic agents - Allergy status to penicillin - Allergy status to serum and vaccine - Allergy to mammalian meats - Allergy to other foods - Hormone replacement therapy - Hypothyroidism, unspecified - Left upper quadrant pain - Noninfective gastroenteritis and colitis, unspecified - Other fdc (current) drug therapy 07/09/2024 09:22 [facility] [place] TYPE: Emergency COMPLAINT: - ABDOMINAL PAIN DIAGNOSES: - Allergy status to other drugs, medicaments and biological substances - Allergy status to penicillin - Allergy status to serum and vaccine - Allergy to other foods - Constipation, unspecified - Other ocean transportation intermediary (current) drug therapy INPATIENT VISIT TRACKING (12 MO.) No inpatient visits to display in this time frame [id number]
[2025-05-29] MEDS ORDERED: KETOROLAC TROMETHAMINE 30 MG/ML VIAL IV ONE (21:45)
[2025-05-29] MEDS ORDERED: LACTATED RINGER'S 1,000 ML IV ONE (21:45)
[2025-05-29 21:51] LABS: BASOPHILS 0.2 % (0.1-1.2); EOSINOPHILS 0.1 % (0.7-7.0); LYMPHOCYTES 10.7 % (19.3-53.1); MCH 28.9 PG (25.6-32.2); MCHC 33.6 g/dL (32.2-36.5); MCV 86.0 fL (79.0-94.8); MONOCYTES 5.5 % (4.7-12.5); NEUTROPHILS 83.3 % (34.0-71.1); RBC 4.85 M/uL (3.93-6.08)
[2025-05-29 22:07] LABS: ALT (SGPT) 28 U/L (14-59); AST (SGOT) 21 U/L (15-37); PROTEIN, TOTAL 7.0 g/dL (6.4-8.2); UREA NITROGEN 5 mg/dL (7-18)
[2025-05-29] MEDS ORDERED: CYCLOBENZAPRINE HCL 10 MG TAB PO ONE (23:00)
[2025-05-29] MEDS ORDERED: HYDROCODONE BIT/ACETAMINOPHEN 5/325 MG 1 TAB HOME.PACK PO ONE (23:00)
[2025-05-29] MEDS ORDERED: HYDROCODONE/ACETA 5/325 TAB PO ONE (23:00)
[2025-05-29] MEDS ORDERED: CYCLOBENZAPRINE HCL 10 MG HOME.PACK PO ONE (23:00)
[2025-05-29 23:06] VITALS: BP 132/66
== END 2025-05-29 23:07 | disposition home or self-care (01) ==
LOC: ED 20:38
PROVIDERS: Internal Medicine
DX: S16.1XXA Strain of muscle, fascia and tendon at neck level, initial encounter (principal); X50.0XXA Overexertion from strenuous movement or load, initial encounter; Z79.899 Other long term (current) drug therapy; Z88.0 Allergy status to penicillin; Z88.7 Allergy status to serum and vaccine; Z91.018 Allergy to other foods; Z88.8 Allergy status to other drugs, medicaments and biological substances
CPT/HCPCS: 36415; 70450; 70486; 72125; 80053; 80307; 85025; 96374; 99284-25; A9270; J1885; J7121